=== PATIENT | female | born 1985 | race African-American/Black ===

== ENCOUNTER 2017-09-23 15:15 | Emergency (ER) | payer MEDICAID ==
[~2017-09-23] VITALS: Ht 170.2 cm; Wt 98.0 kg
[2017-09-23 16:25] VITALS: BP 153/69
== END 2017-09-23 20:45 | disposition left against medical advice (07) ==
LOC: ER 15:28
DX: Z04.8 Encounter for examination and observation for other specified reasons (principal); Z53.21 Procedure and treatment not carried out due to patient leaving prior to being seen by health care provider

== ENCOUNTER 2018-03-31 17:21 | Observation (INO) | payer MEDICAID ==
[2018-03-31 17:50] LABS: CLARITY URINE CLEAR (CLEAR); COLOR URINE YELLOW (YELLOW); KETONES URINE TRACE (NEGATIVE); LEUKOCYTE ESTERASE URINE TRACE (NEGATIVE); NITRITE URINE NEGATIVE (NEGATIVE); OCCULT BLOOD URINE NEGATIVE (NEGATIVE); PH URINE 5.5 (4.5-8.0); PROTEIN URINE TRACE (NEGATIVE); SPECIFIC GRAVITY URINE 1.023 (1.005-1.030)
== END 2018-03-31 20:31 | disposition home or self-care (01) ==
LOC: L&D 17:21
PROVIDERS: ADMIT Obstetrics & Gynecology; ATTEND Obstetrics & Gynecology
DX: O62.9 Abnormality of forces of labor, unspecified (principal); O26.893 Other specified pregnancy related conditions, third trimester; R10.9 Unspecified abdominal pain; Z3A.37 37 weeks gestation of pregnancy
CPT/HCPCS: 76805; 76818; 81003; 99281; G0378

== ENCOUNTER 2021-06-29 07:33 | Emergency (ER) | payer MEDICAID ==
[~2021-06-29] VITALS: Ht 170.2 cm; Wt 114.0 kg
[2021-06-29] MEDS ORDERED: ACETAMINOPHEN 325MG TABLET PO ONE (08:00)
[2021-06-29] MEDS ORDERED: AMOX-424 MT (08:36)
[2021-06-29] MEDS ORDERED: AMOXICILLIN/POTASSIUM CLAVULANATE 875/125MG TAB PO ONE (08:45)
[2021-06-29] MEDS ORDERED: IBUPROFEN 600MG TABLET PO ONE (08:45)
[2021-06-29 08:48] VITALS: BP 156/89
== END 2021-06-29 08:51 | disposition home or self-care (01) ==
LOC: ER 07:33
DX: K08.89 Other specified disorders of teeth and supporting structures (principal); F12.10 Cannabis abuse, uncomplicated
CPT/HCPCS: 81025; 99284